=== PATIENT | male | born 1930 | race Asian ===

== ENCOUNTER 2020-04-08 07:15 | Day surgery (SDC) | payer MEDICARE ==
[~2020-04-08] VITALS: Ht 160 cm; Wt 38.6 kg
[2020-04-08 08:00] LABS: BASOPHILS 0.1 % (0-2); HEMATOCRIT 39.6 % (42.0-54.0); HEMOGLOBIN 12.9 g/dL (13.5-17.5); IMMATURE GRANULOCYTES 0.3 % (0-5); LYMPHOCYTES 18.7 % (15-50); MCH 27.9 pg (26.0-34.0); MCHC 32.6 g/dL (31.0-37.0); MCV 85.5 fL (80.0-100.0); MEAN PLATELET VOLUME 8.2 fL (7.4-10.4); MONOCYTES 7.1 % (2-11); NEUTROPHILS 72.8 % (40-80); PLATELET COUNT 282 10x3/uL (130-400); RBC 4.63 10x6/uL (4.20-6.10); WBC 13.5 10x3/uL (4.8-10.8)
[2020-04-08 08:07] LABS: CALC OSMOLALITY 274 mosm/kg (275-300); CALCIUM 8.6 mg/dL (8.5-10.1); CARBON DIOXIDE 31.2 mmol/L (21.0-32.0); CHLORIDE - SERUM 100 mmol/L (98-107); CREATININE - SERUM 0.9 mg/dL (0.6-1.3); GLUCOSE 109 mg/dL (74-106); POTASSIUM - SERUM 4.1 mmol/L (3.5-5.1); SODIUM 136 mmol/L (136-145); UREA NITROGEN 19 mg/dL (7-18); eGFR NON AFRICAN AMERICAN 85 mL/min (90-120)
[2020-04-08 08:45] VITALS: BP 162/82; Ht 160 cm; Wt 38.6 kg
--- NOTE | 2020-04-08 09:42 | NUR ---
[id number] DR. JENNIE HARRIS
--- NOTE | 2020-04-09 15:18 | OP ---
PATIENT NAME: LARY MITCHELL MEDICAL RECORD: [id number] :[birth year] LOCATION:[facility] ADMISSION DATE: SURGEON: JOHN SCHNEIDER DO DATE OF OPERATION: 04/08/2020 PROCEDURE: EGD with biopsies. INDICATIONS FOR PROCEDURE: Epigastric pain, abnormal findings on CT of the abdomen, unintentional weight loss. SCOPE: Olympus video gastroscope. MEDICATIONS: Propofol 140 mg IV per anesthesia. ESTIMATED BLOOD LOSS: Minimal. COMPLICATIONS: None. FINDINGS: Informed consent was given. The patient was made comfortable with the above medication. After reaching an adequate level of sedation by slow IV push, the patient was placed on his left side. The endoscope was advanced under direct visualization through the mouth to the second portion of the duodenum with ease. The esophagus appeared normal down to the GE junction. At the GE junction, there were minor changes consistent with LA class A reflux-induced esophagitis. The endoscope was advanced into the stomach and retroflexed to view the cardia, which appeared normal. In the body of the stomach, there was a large friable ulcerated infiltrative mass that measured approximately 10 cm in length. It approached the proximal body and cardia but did not appear to involve the cardia. It also involves part of the antrum. In the main part of the mass, it was circumferential and involved the entire circumference of the stomach. It has had a large ulcerated center. It was friable and bled on contact. Multiple cold forceps biopsies were taken from separate areas within the mass itself to submit for pathology. The endoscope was able to traverse the site into the antrum. The distal antrum appeared normal. Cold forceps, biopsies were taken from the antrum to submit for histopathology and to rule out H. pylori. The endoscope was advanced into the duodenum which appeared normal to the second portion. The endoscope was then withdrawn from the patient. The patient tolerated the procedure well and there were no immediate complications. IMPRESSION: 1. LA class A reflux-induced esophagitis. 2. 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 There was approximately 10 cm in length and involved the entire stomach body as well as some of the proximal antrum. It did not appear to involve the cardia. PLAN AND RECOMMENDATIONS: 1. Discharge home when recovery parameters are met. 2. Follow up biopsy specimen results. 3. Continue current diet as tolerated. 4. Referrals will be made to both oncology and surgery for further management once biopsy results return. 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
== END 2020-04-08 11:00 | disposition home or self-care (01) ==
LOC: D.OPS 07:15
PROVIDERS: Anesthesiology; ATTEND Internal Medicine Gastroenterology
DX: R10.13 Epigastric pain (principal); R93.5 Abnormal findings on diagnostic imaging of other abdominal regions, including retroperitoneum; R63.4 Abnormal weight loss; K21.0 Gastro-esophageal reflux disease with esophagitis